=== PATIENT | female | born 1930 | race Two or more races ===

== ENCOUNTER 2017-03-09 14:28 | Inpatient (IN) | payer MEDICARE, MEDICAID ==
[2017-03-09] VITALS (22 sets, daily range): BP systolic 63–111; BP diastolic 41–86
[~2017-03-09] VITALS: Ht 165.1 cm; Wt 50.8 kg
--- NOTE | 2017-03-09 14:25 | Emergency Room Report ---
History of Present Illness General Source: Family Member, Medical Record, EMS Present Illness HPI [id number] BIBEMS from SNF for SOB. 100% on high-flow O2 per EMS BP 92/40 at SNF Patient with eyes closed, tachypnic, not following commands Unable to contribute to HPI Per paperwork from [facility], patient DNR First day at [facility] [place] [place] with Dr Mccallum PMHX: CHF, AICD, CKD not on HD, HTN See complete paperwork Allergies: Coded Allergies: No Known Allergies (Unverified , 03/09/17) Patient History Limited by: age, medical condition Past Medical History: unable to obtain, other - see HPI Past Surgical History: unable to obtain, pacemaker Pertinent Family History: unable to obtain Social History: Denies: smoking, alcohol use, drug use Now: No Immunizations: UTD Reviewed Nursing Documentation: PMH: Agreed, PSxH: Agreed Review of Systems All Other Systems: limited - AMS Physical Exam Sp02 EP Interpretation: reviewed, abnormal General Appearance: normal inspection, severe distress, lethargic Head: normocephalic, atraumatic Eyes: bilateral eye PERRL, bilateral eye EOMI ENT: normal ENT inspection, hearing grossly normal, normal voice Neck: normal inspection, full range of motion, supple, no bony tend Respiratory: normal inspection, rhonchi, other - Bilateral rales to apices Cardiovascular #1: JVD, other - Pitting edema to mid-thighs Gastrointestinal: normal inspection, normal bowel sounds, non tender, soft, no guarding, no hernia Genitourinary: no CVA tenderness Musculoskeletal: normal inspection, back normal, normal range of motion, Elly' s Sign negative Neurologic: normal inspection, alert, oriented x3, responsive, pega developer III-XII nml as tested, motor strength/tone normal, speech normal Psychiatric: normal inspection, judgement/insight normal, mood/affect normal Skin: normal inspection, normal color, no rash Lymphatic: normal inspection Procedures Critical Care Time Critical Care Time 40 min CC time includes review of large amount of paperwork from SNF, d/w hospitalist/ hospital nursing assistant, setting up BIPAP, checking labs, CXR Possibly includes dosing of pressors and /or ABx Central Line Central Line : Consent: Emergent Central Line Lumen: triple Maximal Sterile Barrier Tech: yes cap, yes mask, yes sterile gown, yes sterile gloves, yes large sterile sheet, yes hand hygiene, yes chlorhexidine prep No Max Barrier Tech Because: emergency insertion Central Line Postion: internal jugular (R) Anesthesia: Lidocaine Complications: none Central Line Post Position: sutured, good blood return, position confirmed w / CXR Attempts: One Patient Tolerated: Well Complications: None Medical Decision Making Medicare Attestation I Ebenezer Gonzalez MD hereby attest that the medical record entry for date of service, 03/09/17 accurately reflects signatures/notations that I made in my capacity as MD when I treated/diagnosed the above listed Medicare beneficiary. I attest that this information is true, accurate and complete to the best of my knowledge. I understand that any falsification, omission, or concealment of material fact may subject me to administrative, civil, or criminal liability. This patient warrants hospital admission for extreme of age and has a condition that cannot be treated as outpatient. Diagnostic Impression: Primary Impression: Dyspnea Qualified Codes: R06.00 - Dyspnea, unspecified Additional Impressions: CHF (congestive heart failure) Qualified Codes: I50.9 - Heart failure, unspecified Hypotension Qualified Codes: I95.9 - Hypotension, unspecified Respiratory failure Qualified Codes: J96.00 - Acute respiratory failure, unspecified whether with hypoxia or hypercapnia Anemia Qualified Codes: N18.9 - Chronic kidney disease, unspecified; D63.1 - Anemia in chronic kidney disease Hyperkalemia CKD (chronic kidney disease) Qualified Codes: N18.9 - Chronic kidney disease, unspecified Sepsis Qualified Codes: A41.9 - Sepsis, unspecified organism ER Course Patient's family bedside, including daughter Verified DNR status but agreed to central line with pressors for low BP right IJ central line placed, levophed started - MAP >75 maintained in ED Labs: Leuks 12k, Hb 8.1 K 5.3. Elevated serumCr HyperK tx in ED History of anemia. Will HOLD on transfusion now so as to focus on treatment of sepsis, acute on chronic CHF Sepsis given high leuks 12K. Unknown source. Possibly PNA in right lung, given opacification. UA pending at time of admission Blood and Urine Cx pending Empiric Abx given Endorsed to Dr Mccallum as hospitalist from [facility] at 354pm for ICU admission Informed Dr Mccallum of need for HD as well. EKG Diagnostic Results Rate: other - paced, tachycardic ST Segments: no acute changes ASA given to the pt in ED: No Rhythm Strip Diag. Results EP Interpretation: yes Rate: 102 Rhythm: NSR, no PVC's, no ectopy Chest X-Ray Diagnostic Results Chest X-Ray Diagnostic Results : Chest X-Ray Ordered: Yes Indication: Shortness of Breath EP Interpretation: Yes Interpretation: other - Almost complete opacification of right lung. Left lung blocked by pacemaker placeemnt. Cardiomegaly. Status: improved Disposition: ADMITTED INPATIENT Condition: Critical EBENEZER GONZALEZ M.D. Mar 09, 2017 14:25
[2017-03-09] MEDS ORDERED: FUROSEMIDE40 MG ORAL (15:21)
[2017-03-09] MEDS ORDERED: ZOFRAN ODT4 MG ORAL (15:21)
[2017-03-09] MEDS ORDERED: TYLENOL325 MG ORAL (15:21)
[2017-03-09] MEDS ORDERED: MELATONIN1 M2 PO (15:22)
[2017-03-09] MEDS ORDERED: METOLAZONE2.5 MG PO (15:22)
[2017-03-09] MEDS ORDERED: CARDIZEM30 M1 PO (15:22)
[2017-03-09] MEDS ORDERED: morphine PO (15:22)
[2017-03-09] MEDS ORDERED: IMODIUM A-D2 M2 PO (15:22)
[2017-03-09] MEDS ORDERED: ALBUTEROL2.5 MG/3 M INH (15:22)
[2017-03-09] MEDS ORDERED: COREG3.125 MG ORAL (15:22)
[2017-03-09] MEDS ORDERED: Levophed 4mg/4mL Inj IV ONE (15:23)
[2017-03-09] MEDS ORDERED: Lidocaine 1% MPF 10mg/ml 5ml ONE (15:23)
[2017-03-09 15:43] LABS: MEAN CORPUSCULAR HEMOGLOBIN 28.1 PG (27.0-31.0); MEAN CORPUSCULAR HGB CONC 30.5 G/DL (32.0-36.0); MEAN CORPUSCULAR VOLUME 92 FL (80-99); MEAN PLATELET VOLUME 8.9 FL (6.5-10.1); PLATELET COUNT 92 K/UL (150-450); RED BLOOD COUNT 2.88 M/UL (4.20-5.40); RED CELL DISTRIBUTION WIDTH 17.8 % (11.6-14.8); WHITE BLOOD COUNT 12.2 K/UL (4.8-10.8)
[2017-03-09] MEDS ORDERED: Lidocaine 1% MPF 10mg/ml 5ml IM ONE (15:45)
[2017-03-09] MEDS ORDERED: Vancomycin 1gm inj IVPB ONE (15:54)
[2017-03-09 16:00] LABS: ALANINE AMINOTRANSFERASE 28 U/L (3-33); ANION GAP 23 (5-15); ASPARTATE AMINO TRANSFERASE 54 U/L (5-40); CALCIUM 9.1 mg/dL (8.6-10.2); CARBON DIOXIDE 28 mEQ/L (20-30); CHLORIDE 82 mEQ/L (98-107); CREATININE 6.6 mg/dL (0.5-0.9); HEMOLYSIS 10; POTASSIUM 5.3 mEQ/L (3.4-4.9); SODIUM 133 mEQ/L (135-145)
[2017-03-09] MEDS ORDERED: Vancomycin 1 GM in NS 275 ML IV ONE (16:00)
[2017-03-09 16:20] LABS: TROPONIN I < 0.30 ng/mL (<=0.30)
[2017-03-09 16:28] LABS: BAND NEUTROPHILS % (MANUAL) 1 % (0-8); LYMPHOCYTES % (MANUAL) 1 % (20-45); NEUTROPHILS % (MANUAL) 98 % (45-75); NUCLEATED RED BLOOD CELLS 1 /100 WBC; TOTAL CELLS COUNTED 100
[2017-03-09 16:30] LABS: ANISOCYTOSIS 2+; BASOPHILS % (MANUAL) 0 % (0-2); CKMB 7.1 ng/mL (< 3.8); EOSINOPHILS % (MANUAL) 0 % (0-3); HYPOCHROMASIA 2+; OVALOCYTES 1+; PLATELET ESTIMATE DECREASED; PLATELET MORPHOLOGY NORMAL; POIKILOCYTOSIS 1+; POLYCHROMASIA 2+; TARGET CELLS 1+
[2017-03-09 16:43] LABS: BILIRUBIN,DIRECT 1.6 mg/dL (0.1-0.3)
[2017-03-09] MEDS ORDERED: Calcium Gluconate 1gm/10ml vial IVP ONE (16:45)
[2017-03-09] MEDS ORDERED: Sodium Polystyrene Sulfonate Enema RECTAL ONE (16:45)
[2017-03-09] MEDS ORDERED: Albuterol ud Inhalation HHN ONE (16:45)
[2017-03-09] MEDS ORDERED: Levalbuterol Inh UD 1.25mg/0.5ml ONE (16:49)
[2017-03-09] MEDS ORDERED: Levalbuterol Inh UD 1.25mg/0.5ml HHN ONE (17:00)
--- NOTE | 2017-03-09 17:07 | Diagnostic Imaging Report ---
Indication: Line placement Comparison: 03/09/17 A single view chest radiograph was obtained. Findings: Right jugular central venous catheter demonstrated. The tip is projected over the area of the right atrium. No pneumothorax seen. Again there is extensive pleural thickening, fluid or mass involving the right in the thorax. Overall volume loss on the right side again noted. Impression: Right central line noted. No pneumothorax.
[2017-03-09] MEDS ORDERED: DuoNeb 0.5-3(2.5)mg/3ml neb HHN PRN (17:30)
[2017-03-09] MEDS ORDERED: Promethazine/Codeine 5ml UD ORAL PRN (17:30)
--- NOTE | 2017-03-09 20:52 | Cardiology Progress Note ---
Assessment/Plan Assessment/Plan The patient is seen and examined, full consult note will be dictated. Objective Last 24 Hour Vital Signs Date Time Temp Pulse Resp B/P (MAP) Pulse Ox O2 Delivery O2 Flow Rate FiO2 03/09/17 19:50 119 21 99 Facial 100 03/09/17 19:23 98.1 114 25 111/62 99 Bi-pap 10.0 97 03/09/17 19:17 114 25 111/62 99 Bi-pap 10.0 97 03/09/17 18:30 120 23 103/68 99 Bi-pap 10.0 97 03/09/17 17:20 124 30 106/56 99 Bi-pap 10.0 97 03/09/17 17:10 106 21 99 Bi-pap 40 03/09/17 17:06 94/54 03/09/17 16:55 106 21 99 Facial 40 03/09/17 16:50 126 31 94/54 99 Bi-pap 10.0 97 03/09/17 16:17 98.1 107 20 89/50 99 Bi-pap 10.0 100 03/09/17 16:17 107 20 Bi-pap 10.0 100 03/09/17 16:14 89/50 03/09/17 15:59 88/58 03/09/17 15:40 85/54 03/09/17 15:30 98.1 110 20 88/54 99 Bi-pap 10.0 100 03/09/17 14:46 110 20 99 Facial 100 03/09/17 14:45 110 20 Bi-pap 100 03/09/17 14:24 98.1 90 24 80/40 90 Non-Rebreather 10.0 Intake and Output 03/09/17 03/10/17 19:00 07:00 Intake Total 250 ml Balance 250 ml Intake IV Total 250 ml # Voids 1 Laboratory Tests Test 03/09/17 15:15 03/09/17 16:00 White Blood Count 12.2 K/UL (4.8-10.8) H Red Blood Count 2.88 M/UL (4.20-5.40) L Hemoglobin 8.1 G/DL (12.0-16.0) L Hematocrit 26.5 % (37.0-47.0) L Mean Corpuscular Volume 92 FL (80-99) Mean Corpuscular Hemoglobin 28.1 PG (27.0-31.0) Mean Corpuscular Hemoglobin Concent 30.5 G/DL (32.0-36.0) L Red Cell Distribution Width 17.8 % (11.6-14.8) H Platelet Count 92 K/UL (150-450) L Mean Platelet Volume 8.9 FL (6.5-10.1) Neutrophils (%) (Auto) % (45.0-75.0) Lymphocytes (%) (Auto) % (20.0-45.0) Monocytes (%) (Auto) % (1.0-10.0) Eosinophils (%) (Auto) % (0.0-3.0) Basophils (%) (Auto) % (0.0-2.0) Differential Total Cells Counted 100 Neutrophils % (Manual) 98 % (45-75) H Lymphocytes % (Manual) 1 % (20-45) L Monocytes % (Manual) 0 % (1-10) L Eosinophils % (Manual) 0 % (0-3) Basophils % (Manual) 0 % (0-2) Band Neutrophils 1 % (0-8) Nucleated Red Blood Cells 1 /100 WBC Platelet Estimate Decreased L Platelet Morphology Normal Polychromasia 2+ Hypochromasia 2+ Poikilocytosis 1+ Anisocytosis 2+ Target Cells 1+ Ovalocytes 1+ Sodium Level 133 mEQ/L (135-145) L Potassium Level 5.3 mEQ/L (3.4-4.9) H Chloride Level 82 mEQ/L (98-107) L Carbon Dioxide Level 28 mEQ/L (20-30) Anion Gap 23 (5-15) H Blood Urea Nitrogen > 195 mg/dL (7-23) H Creatinine 6.6 mg/dL (0.5-0.9) H Estimat Glomerular Filtration Rate mL/min (>60) Glucose Level 87 mg/dL (74-106) Calcium Level 9.1 mg/dL (8.6-10.2) Total Bilirubin 2.4 mg/dL (0.0-1.2) H Direct Bilirubin 1.6 mg/dL (0.1-0.3) H Aspartate Amino Transf (AST/SGOT) 54 U/L (5-40) H Alanine Aminotransferase (ALT/SGPT) 28 U/L (3-33) Alkaline Phosphatase 93 U/L (35-104) Total Creatine Kinase 53 U/L (26-140) Creatine Kinase MB 7.1 ng/mL (< 3.8) H Creatine Kinase MB Relative Index 13.3 Troponin I < 0.30 ng/mL (<=0.30) Pro-B-Type Natriuretic Peptide > 13118 pg/mL (0-450) H Total Protein 6.0 g/dL (6.6-8.7) L Albumin 4.5 g/dL (3.5-5.2) Globulin 1.5 g/dL Albumin/Globulin Ratio 3.0 (1.0-2.7) H Lactic Acid Level 1.30 mmol/L (0.66-2.22) JAX CHATTERJEE Mar 09, 2017 20:52
--- NOTE | 2017-03-09 21:27 | Infectious Diseases Prog Note ---
Assessment/Plan Problems: (1) Sepsis (2) Hypotension (3) CHF (congestive heart failure) (4) Respiratory failure Subjective Allergies: Coded Allergies: No Known Allergies (Unverified , 03/09/17) Objective Vital Signs Last 24 Hour Vital Signs Date Time Temp Pulse Resp B/P (MAP) Pulse Ox O2 Delivery O2 Flow Rate FiO2 03/09/17 19:50 119 21 99 Facial 100 03/09/17 19:23 98.1 114 25 111/62 99 Bi-pap 10.0 97 03/09/17 19:17 114 25 111/62 99 Bi-pap 10.0 97 03/09/17 18:30 120 23 103/68 99 Bi-pap 10.0 97 03/09/17 17:20 124 30 106/56 99 Bi-pap 10.0 97 03/09/17 17:10 106 21 99 Bi-pap 40 03/09/17 17:06 94/54 03/09/17 16:55 106 21 99 Facial 40 03/09/17 16:50 126 31 94/54 99 Bi-pap 10.0 97 03/09/17 16:17 98.1 107 20 89/50 99 Bi-pap 10.0 100 03/09/17 16:17 107 20 Bi-pap 10.0 100 03/09/17 16:14 89/50 03/09/17 15:59 88/58 03/09/17 15:40 85/54 03/09/17 15:30 98.1 110 20 88/54 99 Bi-pap 10.0 100 03/09/17 14:46 110 20 99 Facial 100 03/09/17 14:45 110 20 Bi-pap 100 03/09/17 14:24 98.1 90 24 80/40 90 Non-Rebreather 10.0 Height (Feet): 5 Weight (Pounds): 120 Laboratory Tests Test 03/09/17 15:15 03/09/17 16:00 White Blood Count 12.2 K/UL (4.8-10.8) H Red Blood Count 2.88 M/UL (4.20-5.40) L Hemoglobin 8.1 G/DL (12.0-16.0) L Hematocrit 26.5 % (37.0-47.0) L Mean Corpuscular Volume 92 FL (80-99) Mean Corpuscular Hemoglobin 28.1 PG (27.0-31.0) Mean Corpuscular Hemoglobin Concent 30.5 G/DL (32.0-36.0) L Red Cell Distribution Width 17.8 % (11.6-14.8) H Platelet Count 92 K/UL (150-450) L Mean Platelet Volume 8.9 FL (6.5-10.1) Neutrophils (%) (Auto) % (45.0-75.0) Lymphocytes (%) (Auto) % (20.0-45.0) Monocytes (%) (Auto) % (1.0-10.0) Eosinophils (%) (Auto) % (0.0-3.0) Basophils (%) (Auto) % (0.0-2.0) Differential Total Cells Counted 100 Neutrophils % (Manual) 98 % (45-75) H Lymphocytes % (Manual) 1 % (20-45) L Monocytes % (Manual) 0 % (1-10) L Eosinophils % (Manual) 0 % (0-3) Basophils % (Manual) 0 % (0-2) Band Neutrophils 1 % (0-8) Nucleated Red Blood Cells 1 /100 WBC Platelet Estimate Decreased L Platelet Morphology Normal Polychromasia 2+ Hypochromasia 2+ Poikilocytosis 1+ Anisocytosis 2+ Target Cells 1+ Ovalocytes 1+ Sodium Level 133 mEQ/L (135-145) L Potassium Level 5.3 mEQ/L (3.4-4.9) H Chloride Level 82 mEQ/L (98-107) L Carbon Dioxide Level 28 mEQ/L (20-30) Anion Gap 23 (5-15) H Blood Urea Nitrogen > 195 mg/dL (7-23) H Creatinine 6.6 mg/dL (0.5-0.9) H Estimat Glomerular Filtration Rate mL/min (>60) Glucose Level 87 mg/dL (74-106) Calcium Level 9.1 mg/dL (8.6-10.2) Total Bilirubin 2.4 mg/dL (0.0-1.2) H Direct Bilirubin 1.6 mg/dL (0.1-0.3) H Aspartate Amino Transf (AST/SGOT) 54 U/L (5-40) H Alanine Aminotransferase (ALT/SGPT) 28 U/L (3-33) Alkaline Phosphatase 93 U/L (35-104) Total Creatine Kinase 53 U/L (26-140) Creatine Kinase MB 7.1 ng/mL (< 3.8) H Creatine Kinase MB Relative Index 13.3 Troponin I < 0.30 ng/mL (<=0.30) Pro-B-Type Natriuretic Peptide > 75351 pg/mL (0-450) H Total Protein 6.0 g/dL (6.6-8.7) L Albumin 4.5 g/dL (3.5-5.2) Globulin 1.5 g/dL Albumin/Globulin Ratio 3.0 (1.0-2.7) H Lactic Acid Level 1.30 mmol/L (0.66-2.22) Current Medications Medications (Trade) Dose Ordered Sig/Negar Route PRN Reason Start Time Stop Time Status Last Admin Dose Admin Albuterol/ Ipratropium (DuoNeb 0.5-3(2.5)mg/3ml) 3 ml EVERY 4 HOURS PRN HHN Shortness of Breath 03/09/17 17:30 03/14/17 17:29 Norepinephrine Bitartrate 4 mg/ Dextrose 250 ml @ 0 mls/hr Q24H IV 03/09/17 21:30 04/08/17 21:29 UNV Norepinephrine Bitartrate 8 mg/ Sodium Chloride 250 ml @ 0 mls/hr Q24H IV 03/09/17 15:15 04/08/17 15:14 03/09/17 15:40 Piperacillin Sod/ Tazobactam Sod 4.5 gm/Sodium Chloride 110 ml @ 220 mls/hr Q8HR IV 03/09/17 22:00 03/10/17 21:59 Promethazine HCl/ Codeine (Phenergan with Codeine) 5 ml Q4H PRN ORAL For Cough 03/09/17 17:30 04/08/17 17:29 Sodium Chloride 1,000 ml @ 200 mls/hr Q5H IV 03/09/17 18:00 04/08/17 17:59 03/09/17 18:25 Mark Fuller M.D. Mar 09, 2017 21:27
[2017-03-09] MEDS ORDERED: Piperacillin/Tazobactam 4.5 GM in NS 110 ML IV SCH (22:00)
[2017-03-09] MEDS ORDERED: Piperacillin/Tazobactam 2.25 GM in D5W 55 ML IVPB SCH (23:00)
[2017-03-09] MEDS ORDERED: Clindamycin 600mg 50 ML IV SCH (23:00)
[2017-03-10 00:15] VITALS: BP 68/36
[2017-03-10 00:30] VITALS: BP 0/0
[2017-03-10] MEDS ORDERED: NS 275ml ONE (04:09)
[2017-03-10] MEDS ORDERED: Tubing IV Secondary IV ONE (04:09)
[2017-03-10] MEDS ORDERED: Piperacillin/Tazobactam 2.25 GM in D5W 55 ML IVPB SCH (06:00)
--- NOTE | 2017-03-10 06:00 | Consultation ---
DATE OF CONSULTATION: 03/09/2017 HEMATOLOGY/ONCOLOGY CONSULT CONSULTING PHYSICIAN: Reymundo Crook M.D. REQUESTING PHYSICIAN: Saundra Rodriguez M.D. REASON FOR CONSULTATION: Severe anemia, thrombocytopenia, and leukocytosis. CURRENT COMPLAINT AND HISTORY OF PRESENT ILLNESS: Dear Dr. Rodriguez, Today, I had an opportunity to see one of your patients, who as you are well aware is an 86-year-old delightful female with extensive past medical history remarkable for coronary artery disease, hypertension, congestive heart failure, AICD placement, chronic kidney disease stage 4, encephalopathy, and respiratory failure. At this time, the patient is admitted to [facility] ICU. The patient with eyes closed, tachypneic, not following commands. During evaluation, it was found that the patient developed significant anemia with hemoglobin around 8.1 and developed thrombocytopenia. My service was called to handle the issue of blood dyscrasia. PAST MEDICAL HISTORY: Coronary artery disease. Hypertension. Congestive heart failure. Status post AICD placement. Chronic kidney disease, stage 3. Anemia of kidney disease. Anemia of chronic disease. DNR Code Status. MEDICATIONS: 1. Cefroxadine. 2. Sodium chloride. 3. Codeine. 4. Ipratropium. ALLERGIES: NKDA. SOCIAL HISTORY: No history of smoking. No history of alcohol abuse. No history of illicit drug use. FAMILY HISTORY: Noncontributory. REVIEW OF SYSTEMS: Unobtainable secondary to mental status changes. PHYSICAL EXAMINATION: VITAL SIGNS: T-max 99 degrees. Respiratory rate 20. Heart rate 80. Blood pressure 111/60. HEENT: Head, normocephalic and atraumatic. NECK: Supple. No thyroid enlargement. No lymphadenopathy. LUNGS: Decreased breath sounds bilaterally with few rhonchi in the base. HEART: S1 and S2 regular. ABDOMEN: Soft and benign. No organomegaly present. Bowel sounds present. EXTREMITIES: No cyanosis, clubbing, or edema. LABORATORY DATA: WBC 12.2, hemoglobin 8.1, hematocrit 26.5, and platelets 92,000. Chemistry shows creatinine 6.6. Total bilirubin 2.4, direct bilirubin 1.6, and AST 84. BNP 7000. IMPRESSION: 1. Leukocytosis with left shift. 2. Anemia of kidney disease. 3. Anemia of chronic disease. 4. Decreased hemoglobin and hematocrit, rule out gastrointestinal bleed. 5. Thrombocytopenia, multifactorial. 6. Acute/chronic kidney disease. 7. Transaminitis. 8. Elevated liver function tests. 9. Liver failure. 10. Hypertension. 11. Congestive heart failure. 12. Status post automatic implanted cardioverter-defibrillator placement. 13. Respiratory failure. 14. Encephalopathy. 15. Malnutrition. 16. Failure to thrive. 17. Do not resuscitate Code Status. RECOMMENDATIONS: 1. Watch count. 2. Watch coagulopathy. 3. PRBC transfusion p.r.n. basis. 4. Platelet transfusion p.r.n. basis. 5. Antibiotic IV. 6. ID followup. 7. Cardiology followup. 8. Respiratory treatment. 9. Skin care. 10. Nutrition. 11. Close followup. Dear Dr. Rodriguez, I greatly appreciate the opportunity to participate in the care of one of your patients. It is a privilege to me to evaluate this interesting and challenging case. Reymundo Crook MD DR: LEIGHA JOB#: [id number] CC:
--- NOTE | 2017-03-10 09:02 | History and Physical Report ---
DATE OF ADMISSION: 03/09/2017 NOTE: "POOR AUDIO QUALITY" HISTORY OF PRESENT ILLNESS: The patient has been admitted to ICU for acute congestive heart failure, possible pneumonia. The patient is DNR. The patient was started on BiPAP. acute renal failure with creatinine 6.6. The patient is currently on a . The patient is also apparently DNR is admitted nursing facility. PAST MEDICAL HISTORY: Hypertension, history of insomnia, history of hypothyroidism, and chronic renal insufficiency. PAST SURGICAL HISTORY: None known. MEDICATIONS: Albuterol, Coreg, diltiazem, Lasix, melatonin, midazolam and Zofran. ALLERGIES: No known allergies. FAMILY HISTORY: Unable to obtain. SOCIAL HISTORY: Unable to obtain. REVIEW OF SYSTEMS: poor historian.HEENT: Denies headaches. Respiratory: Denies shortness of breath. Denies cough. Cardiovascular: No chest pain. Gastrointestinal: Denies nausea, vomiting, or diarrhea. PHYSICAL EXAMINATION: VITAL SIGNS: Temperature is not recorded, pulse 106, respiratory rate HEENT: PERRLA. NECK: Supple. No lymphadenopathy. CHEST: Bibasilar rales. CARDIOVASCULAR: Tachycardia. GASTROINTESTINAL: Soft, nontender, and nondistended. No organomegaly. EXTREMITIES: Reflexes equal on both sides. LABORATORY DATA: Significant for , and platelets of . , potassium 5. 195, creatinine 6.6. Total bilirubin 2.4. ASSESSMENT AND PLAN: 1. Acute renal failure 2. Acute anemia secondary to acute renal failure. 3. Leukocytosis. 4. 5. hypertension . 6. possible pneumonia. I have asked Dr. Edouard, Dr. Fuller, Dr. Scherer, Dr. Ambrose, Dr. Saucead, and Dr. Crook to see the patient for the above-mentioned diagnoses and treatment. Saundra Rodriguez M.D. DR: STEPHANIE JOB#: [id number] CC:
--- NOTE | 2017-03-11 15:40 | Discharge Summary ---
Discharge Summary Hospital Course Date of Admission Mar 09, 2017 at 15:04 Date of Discharge Mar 10, 2017 at 04:10 Admitting Diagnosis CHF, SOB HPI Alejandrina Fu is a 86 year old female who was admitted on Mar 09, 2017 at 15:04 for Congestive Heart Failure, Shortness Of Breath Hospital Course [id number] Discharge Discharge Disposition Patient Discharge Diagnoses: Cyn Hatch NP Mar 11, 2017 15:40
--- NOTE | 2017-03-11 19:30 | Consultation ---
DATE OF CONSULTATION: 03/09/2017 CARDIOLOGY CONSULTATION CONSULTING PHYSICIAN: Guerrero Ambrose M.D. REFERRING PHYSICIAN: Saundra Rodriguez M.D. REASON FOR CONSULTATION: Management of the patient with severe hypotension. LOCATION: The patient is seen in the intensive care unit of [facility] for severe hypotension. HISTORY OF PRESENT ILLNESS: The patient is a very unfortunate 86-year-old lady, a resident of a senior care facility, who was brought in by paramedics for evaluation and management of shortness of breath. The patient en route was on high-flow O2, 100%. Her blood pressure was 92/40 mmHg at the [facility]. The patient was not following commands and could not provide any history. My evaluation is based on the old records and records from the paramedics as well as the emergency department. The patient is under the care of Dr. Rodriguez at [facility]. Her cardiac history includes history of cardiomyopathy, status post automated implantable cardioverter-defibrillator. It is not known whether the patient had any ischemic workup. On arrival to the hospital, the patient's rhythm was atrial fibrillation with ventricular paced rhythm. ST segments could not be evaluated as a result. PAST MEDICAL HISTORY: 1. History of congestive heart failure. 2. History of severe cardiomyopathy with left ventricular ejection fraction of less than 30%. 3. History of chronic kidney disease. 4. History of AICD implantation. 5. History of hypertension. PAST SURGICAL HISTORY: Implantation of AICD. MEDICATIONS: List of medications including acetaminophen 650 mg q.6 hours p.r.n. temperature above 101, pain, and headache. Albuterol 3 mL inhaler q.6 hours p.r.n. shortness of breath, carvedilol 3.125 mg twice daily, diltiazem 30 mg q.4 hours, furosemide 40 mg twice daily, Imodium 2 mg q.12 hours p.r.n. diarrhea, melatonin 1 mg p.o. nightly, metolazone 2.5 mg twice daily, Zofran 4 mg q.6 hours p.r.n. nausea or vomiting, and morphine the dose of which is unknown p.r.n. pain. ALLERGIES: No known drug allergies. FAMILY HISTORY: No premature coronary artery disease per records. SOCIAL HISTORY: There is no current history of tobacco, alcohol, or illicit drug use. REVIEW OF SYSTEMS: At this time, the patient is unable to provide any history due to severe hypotension and altered level of consciousness. PHYSICAL EXAMINATION: VITAL SIGNS: Blood pressure at the time of arrival to emergency department was 80/40, pulse 90, respirations 24, 98.1 degrees Fahrenheit, and O2 saturation of 90% on nonrebreather 10 L/minute oxygen. GENERAL: The patient is a very frail 86-year-old female, surrounded by the family, in [id number] respiratory distress. The patient is DNR and DNI, on dopamine drip. HEENT: Atraumatic and normocephalic. Pupils are equal, round, and reactive to light and accommodation. NECK: JVP elevated at about 10 cm. No carotid bruit. Carotid upstrokes 2+ bilaterally. CARDIOVASCULAR SYSTEM: Normal S1 and S2. Regular rate and rhythm. Tachycardic. PMI is displaced downward laterally to anterior axillary line. LUNGS: Diminished breath sounds in the right lung. ABDOMEN: Soft, nontender, and nondistended. No hepatosplenomegaly. Positive bowel sounds. EXTREMITIES: No evidence of edema, clubbing, or cyanosis. IMAGING: A 12-lead electrocardiogram shows atrial fibrillation with ventricular paced rhythm, rate 102. Chest x-ray shows presence of AICD leads and pacemaker, complete opacification of right lung, and cardiomegaly. LABORATORY FINDINGS: WBC 12.2, hemoglobin 8.1, hematocrit 26.5, and platelet count 92,000. Chemistry showed sodium 133, potassium 5.3, chloride 82, bicarbonate 28, BUN more than 195, and creatinine 6.6. Troponin I less than 0.3. ProBNP was above 70,000. ASSESSMENT AND PLAN: The patient is an 86-year-old lady, who was admitted to intensive care unit at [facility] for hypotension and multiorgan failure. 1. Hypotension, most likely a combination of sepsis or cardiogenic in view of the patient's severe left ventricular systolic dysfunction. The patient is currently on dopamine drip for maintenance of hemodynamics. Our goal is to keep the blood pressure above 100 mmHg or mean arterial pressure of 65 mmHg. The patient remains to be in the intensive care unit. In view of the Do Not Resuscitate and Do Not Intubate status, the patient will only be palliative care. 2. Severe left ventricular systolic dysfunction with left ventricular ejection fraction less than 30%, status post automated implantable cardioverter-defibrillator implantation. Detailed etiology of cardiomyopathy is not clear. At this point, the patient will be hemodynamically stabilized with dopamine drip. The heart failure regimen is on hold due to hypotension. 3. Acute renal failure most likely on chronic kidney disease with associated hyperkalemia and elevation of BUN. The patient is followed by nephrology and requires treatment of hyperkalemia. The patient is not a candidate for dialysis to avoid cardiac arrhythmias. 4. Possible uremic encephalopathy. 5. History of hypertension. 6. History of thrombocytopenia. 7. History of anemia. The total amount of time spent in evaluation of this patient in the intensive care unit of [facility] on 03/09/2017 at 2052 hours was 45 minutes. Guerrero Ambrose M.D. DR: ESHA JOB#: [id number] CC:
--- NOTE | 2017-03-12 22:30 | Discharge Summary 2 SIG ---
DATE OF ADMISSION: 03/09/2017 DATE OF DISCHARGE: 03/10/2017 SUMMARY BRIEF SUMMARY: The patient was an 86-year-old female, who was brought in via EMS from [facility] for evaluation of shortness of breath. The patient was hypotensive at [facility]. Blood pressure was 92/40. She was tachypneic and not following commands. She was recently discharged from [facility] with a that states DNR. She was thus brought in from [place] to the [facility]. On evaluation at ED, the patient was hypotensive. Central line was placed to the right internal jugular and was started on IV pressors. The family at bedside and verified DNR status. Laboratories showed leukocytosis with anemia, hemoglobin 8.3. Potassium was 5.3 and serum creatinine were elevated. Chest x-ray done, showed almost complete opacification of the right lung. 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 She was placed on BiPAP and was started on IV antibiotics, Zosyn and clindamycin. The patient continued to decline and eventually . FINAL DIAGNOSES: 1. Sepsis. 2. Acute respiratory failure. 3. Hyperkalemia. 4. Anemia. 5. Hypotension. 6. Chronic kidney disease. 7. Acute renal failure. 8. Acute anemia. 9. Possible pneumonia. 10. Status post automatic implantable cardioverter-defibrillator placement. 11. Do Not Resuscitate status. Saundra Rodriguez M.D. I have been assigned to dictate discharge summary on this account and I was not involved in the patient's management. Cyn Hatch N.P. DR: Bharathi JOB#: [id number] CC:
== END 2017-03-10 04:10 | disposition expired | DRG 871 ==
LOC: EDBD 14:28 → EMR 15:00 → ICU 15:04 → EDBEDREQSVC 15:15 → EDBEDREQ 18:07
PROC: 5A09357 Assistance with Respiratory Ventilation, Less than 24 Consecutive Hours, Continuous Positive Airway Pressure (ICD-10-PCS; principal; 2017-03-09)
PROC: 3E043XZ Introduction of Vasopressor into Central Vein, Percutaneous Approach (ICD-10-PCS; principal; 2017-03-09)
PROC: 05HM33Z Insertion of Infusion Device into Right Internal Jugular Vein, Percutaneous Approach (ICD-10-PCS; principal; 2017-03-09)
DX: A41.9 Sepsis, unspecified organism (principal); J96.00 Acute respiratory failure, unspecified whether with hypoxia or hypercapnia; G93.40 Encephalopathy, unspecified; J18.9 Pneumonia, unspecified organism; E46 Unspecified protein-calorie malnutrition; N18.4 Chronic kidney disease, stage 4 (severe); I42.9 Cardiomyopathy, unspecified; N17.9 Acute kidney failure, unspecified; D69.6 Thrombocytopenia, unspecified; I50.9 Heart failure, unspecified; Z68.1 Body mass index [BMI] 19.9 or less, adult; Z66 Do not resuscitate; I95.9 Hypotension, unspecified; E87.5 Hyperkalemia; I12.9 Hypertensive chronic kidney disease with stage 1 through stage 4 chronic kidney disease, or unspecified chronic kidney disease; D63.1 Anemia in chronic kidney disease; R62.7 Adult failure to thrive; K72.90 Hepatic failure, unspecified without coma; Z95.810 Presence of automatic (implantable) cardiac defibrillator; I25.10 Atherosclerotic heart disease of native coronary artery without angina pectoris; E03.9 Hypothyroidism, unspecified
CPT/HCPCS: 36415; 71010; 80053; 82248; 82550; 82553; 83605; 83880; 84484; 85007; 85025; 87040; 87081; 93005; 94664; S0077